=== PATIENT | male | born 2000 | race Two or more races ===

== ENCOUNTER 2025-03-03 18:15 | Emergency (ER) | payer BC, SELFPAY ==
[2025-03-03] VITALS (8 sets, daily range): BP systolic 158–229; BP diastolic 99–158; PULSE 70–103; RESP 16–20; TEMP 36.8–37.6; O2SAT 95–97; BMI 35.2
--- NOTE | 2025-03-03 18:35 | EKG_ITS ---
[facility] Test Date: 2025-03-03 Pat Name: YOGESH ALCANTARA Department: Room: - Gender: Male Chauffeur: : 2000 Requested By: Jada Parnell Order Number: [id number] Reading MD: Jada Parnell Measurements Intervals [place] Rate: 104 P: 26 FL: 182 QRS: 64 QRSD: 105 T: -25 QT: 305 QTc: 403 Interpretive Statements SINUS TACHYCARDIA ST DEVIATION AND MODERATE T-WAVE ABNORMALITY, CONSIDER LATERAL ISCHEMIA [-0.1+ mV T-WAVE IN I/aVL/V5/V6] ST DEVIATION AND MODERATE T-WAVE ABNORMALITY, CONSIDER INFERIOR ISCHEMIA [-0.1+ mV T-WAVE IN II/aVF] No previous ECG available for comparison /store/S0/[id number]
--- NOTE | 2025-03-03 18:35 | XR_ITS ---
Examination: CT lumbar spine, without contrast. 2-D sagittal reconstructions. 2-D coronal reconstructions. 3-D reconstructions. Date and time of exam: March 03, 2025, 1937 hours INDICATIONS: Onset right lower back pain beginning 3 days ago CTDI: vol (mGy): 41.3 DLP: (mGycm): 1573 Technique: Multiple 1.25 mm axial sections of the lumbar spine without intravenous contrast have been obtained. 2-D sagittal and coronal reconstructions have been obtained. 3-D reconstructions have been obtained. Low dose protocols were performed. One or more of the following dose reduction techniques were used; automated exposure control, adjustment of the mA and/or KV according to patient size, use of iterative reconstruction technique. Findings: Satisfactory line and lumbar vertebral bodies No lumbar fracture No spondylolisthesis No significant lumbar disc narrowing L5-S1 4 mm central 6 mm right paracentral subarticular disc bulge displacing the right S1 nerve root and producing mild right L5 ganglionic compression L4-L5 3 mm central lumbar disc bulge IMPRESSION: No lumbar fracture L5-S1 4 mm central 6 mm right paracentral subarticular disc bulge displacing the right S1 nerve root and producing mild right L5 ganglionic compression L4-L5 3 mm central lumbar disc bulge MRI lumbar spine without contrast follow-up would best assess full extent of acquired spinal stenosis
[2025-03-03] MEDS: HYDROcodone/APAP 5/325 TABLET 1 TAB PO (18:58)
[2025-03-03] MEDS: KETOROLAC INJ 60 MG/2 ML VIAL IM (18:59)
[2025-03-03 19:02] LABS: Basophils # (Auto) 0.1 Thou/mm3 (0.0-0.2); Basophils % (Auto) 1 % (0-2.5); Eosinophils # (Auto) 0.3 Thou/mm3 (0.0-0.5); Eosinophils % (Auto) 3 % (0-10); Hematocrit 44.6 % (41.0-53.0); Hemoglobin 15.4 g/dL (13.5-16.0); Immature Granulocytes Auto 0.01 Thou/mm3 (0.00-0.00); Lymphocytes # (Auto) 2.9 Thou/mm3 (1.0-4.8); Lymphocytes % (Auto) 32 % (10-50); Mean Corpuscular HGB Conc 34.5 g/dl (31.0-37.0); Mean Corpuscular Hemoglobin 30.3 pg (25.0-35.0); Mean Corpuscular Volume 88 fL (80-100); Monocytes # (Auto) 0.6 Thou/mm3 (0.0-0.8); Monocytes % (Auto) 6 % (0-12); Neutrophils # (Auto) 5.2 Thou/mm3 (1.8-7.7); Neutrophils % (Auto) 58 % (37-80); Nucleated Red Blood Cell # 0.00 Thou/mm3 (0.00-0.00); Nucleated Red Blood Cell % 0 /100 WBC (0); Platelet Count 319 Thou/mm3 (140-440); RDW Standard Deviation 38.9 fL (35.1-43.9); Red Blood Count 5.08 Miln/mm3 (4.50-5.90); White Blood Count 9.0 Thou/mm3 (3.8-10.6)
[2025-03-03 19:19] LABS: Alanine Aminotransferase 105 U/L (10-49); Albumin, Serum 5.4 gm/dL (3.5-5.0); Albumin/Globulin Ratio 2.0 (1.2-2.2); Alkaline Phosphatase 73 U/L (46-116); Anion Gap 10 (7-16); Aspartate Amino Transferase 32 U/L (0-34); BUN/Creatinine Ratio 11 Ratio (12-20); Bilirubin,Total 0.6 mg/dL (0.3-1.2); Blood Urea Nitrogen 9 mg/dL (9-23); Calcium 10.0 mg/dL (8.3-10.6); Calcium (Corrected) 10.0 mg/dL (8.5-10.1); Carbon Dioxide 27.8 mMol/L (20.0-31.0); Chloride 104 mMol/L (98-107); Creatinine (Component) 0.8 mg/dL (0.6-1.3); Estimated Creatinine Clearance 185.5 mL/min (>60); Globulin 2.7 gm/dL (2.3-3.5); Glucose 104 mg/dL (74-106); Osmolality,Calculated 281 (275-295); Potassium 3.8 mMol/L (3.4-5.1); Sodium 142 mMol/L (136-145); Total Protein 8.1 gm/dL (5.7-8.2); Troponin I < 0.020 ng/mL (0.0-0.045); eGFR > 60 See Note
[2025-03-03 19:28] LABS: Collection Type, Urine Voided; Squamous Epithelial Cell,Urine 0 /hpf (0-5)
[2025-03-03 20:03] LABS: Amorphous Crystals,Urine Present (Absent); Bacteria,Urine Rare; Bilirubin,Urine Negative (Negative); Blood,Urine Negative (Negative); Clarity,Urine Turbid (Clear/Hazy); Color,Urine Yellow (Lt Yel-Yel); Glucose, Urine Negative (Negative); Ketones,Urine Negative (Negative); Leukocyte Esterase,Urine Negative (Negative); Nitrite,Urine Negative (Negative); PH,Urine 7.0 (5.0-7.0); Protein,Urine Negative (Neg - Trace); RBC,Urine 1 /hpf (0-3); Specific Gravity,Urine 1.024 (1.001-1.035); Urobilinogen,Urine Negative mg/dL (0.0-1.0); WBC,Urine < 1 /hpf (0-5)
[2025-03-03] MEDS: MORPHINE SULF INJ 4 MG/ML VIAL IM (21:19)
[2025-03-03] MEDS: hydrALAZINE INJ 20 MG/ML VIAL 10 MG IM (22:30)
--- NOTE | 2025-03-03 22:48 | EDNOTE_ITS ---
ED Back Injury Pain RME/HPI General Chief Complaint: Back Pain/Injury Stated Complaint: LOWER BACK PAIN 01/04 Time Seen by Provider: 03/03/25 18:30 Arrival date/time: 03/03/25 18:15 This is a case of 24-year-old male with no medical history came in in the emergency room due to lower back pain for 6 days aggravated by walking patient states that the pain radiates to both side of his left lower extremities with some tingling sensation but no numbness no weakness noted denies any incontinence to urine or stool denies any injury or trauma Limitations: no limitations Related Data Previous Rx's ?Medication ?Instructions ?Recorded Hydrocodone/Acetaminophen * (NORCO 1 tab PO Q4H PRN pa in #20 tabs 12/31/14 5/325 *) ibuprofen 600 mg tablet 600 mg PO Q6HR PRN PAIN #40 tabs 12/31/14 cyclobenzaprine 10 mg tablet 10 mg PO BID PRN muscle s pasm #10 03/04/25 tabs hydrocodone 5 mg-acetaminophen 325 1 tab PO Q6H PRN pa in #16 tabs 03/04/25 mg tablet lidocaine 5 % topical patch 1 patch topical QDAY #15 e a 03/04/25 (Lidoderm) Allergies Allergy/AdvReac Type Severity Reaction Status Date / Time No Known Allergies Allergy Verified 03/03/25 18:18 Review of Systems Review of Systems Systems Reviewed: All systems reviewed, normal except as documented Constitutional Constitutional: Reports system reviewed and no additional complaints, except as documented and Reports as per HPI Cardiovascular Cardiovascular: Reports system reviewed and no additional complaints, except as documented and Reports as per HPI Respiratory Respiratory: Reports system reviewed and no additional complaints, except as documented and Reports as per HPI Gastrointestinal Gastrointestinal: Reports system reviewed and no additional complaints, except as documented and Reports as per HPI Musculoskeletal Musculoskeletal: Reports system reviewed and no additional complaints, except as documented, Reports as per HPI and Reports back pain Neurologic Neurologic: Reports system reviewed and no additional complaints, except as documented and Reports as per HPI Past Medical History Social History SMOKING STATUS: Never smoker ED Exam General Limitations: Present no limitations General appearance: Present alert, in no apparent distress and other (Patient is awake alert oriented not in distress nontoxic looking well-hydrated well nourished) Head Head exam: Present atraumatic Eye Eye exam: Present normal appearance, PERRL and EOMI ENT ENT exam: Present normal exam, normal oropharynx and mucous membranes moist Neck Neck exam: Present normal inspection, full ROM and trachea midline; Absent tenderness, meningismus, lymphadenopathy or thyromegaly Chest Chest inspection: Present normal inspection and symmetric chest wall rise; Absent tenderness Respiratory Respiratory exam: Present normal lung sounds bilaterally; Absent respiratory distress, wheezes, stridor, accessory muscle use or prolonged expiratory phase Cardiovascular Cardiovascular exam: Present regular rate, normal rhythm and normal heart sounds; Absent bradycardia, tachycardia, irregular rhythm, systolic murmur or diastolic murmur Abdominal Exam Abdominal exam: Present soft and normal bowel sounds; Absent distention, tenderness, guarding, rebound, rigidity, diminished bowel sounds, hyperactive bowel sounds or hypoactive bowel sounds Extremities Exam Extremities exam: Present normal inspection and full ROM Back Exam Back exam: Present normal inspection, full ROM, tenderness (Moderate tenderness on L1-L5 no crepitation no deformity no paraspinal no paravertebral tenderness ROM is limited due to pain pulses were full and equal capillary refill less than 2 seconds sensory intact), muscle spasm, paraspinal tenderness and other (Steady gait); Absent CVA tenderness (R), CVA tenderness (L), vertebral tenderness, rashes, sciatic notch tenderness (R), sciatic notch tenderness (L), straight leg raise (R) or straight leg raise (L) Neurological Exam Neurological exam: Present alert, oriented X3, CN II-XII intact, normal gait and reflexes normal; Absent motor sensory deficit Psychiatric Psychiatric exam: Present normal affect and normal mood Skin Skin exam: Present warm, dry, intact and normal color Course Quality Measures none Orders Category Date Time Status EKG (ED ONLY) *Do not use* NOW Care 03/03/25 18:[address] lumbar spine wo con Stat Exams 03/03/25 18:35 Completed EKG (ED Only) Stat Exams 03/03/25 18:35 Draft CBC Stat Lab 03/03/25 18:54 Completed CMP [Comprehensive Metabolic Panel] Stat Lab 03/03/25 18:54 Completed Troponin I Stat Lab 03/03/25 18:54 Completed Urinalysis Stat Lab 03/03/25 19:14 Completed HYDROcodone*/APAP 5/325 [[place] 5/325] Med 03/03/25 18:35 Discontinued 1 tab PO X1 ONE Ketorolac Inj [Toradol Inj] Med 03/03/25 18:35 Discontinued 60 mg IM X1 ONE Morphine* Inj Med 03/03/25 20:08 Discontinued 4 mg IM X1 ONE Morphine* Inj Med 03/03/25 21:06 Discontinued 4 mg IM X1 ONE cloNIDine HCL [Catapres] Med 03/03/25 20:31 Discontinued 0.1 mg PO X1 ONE cloNIDine HCL [Catapres] Med 03/03/25 21:06 Discontinued 0.1 mg PO X1 ONE dexAMETHasone INJ [Decadron Inj] Med 03/03/25 18:54 Discontinued 10 mg PO X1 ONE dexAMETHasone TAB [Decadron Tab] Med 03/03/25 18:35 Discontinued 1 mg PO X1 ONE hydrALAZINE INJ [Apresoline Inj] Med 03/03/25 22:00 Discontinued 10 mg IM X1 ONE Vital Signs Vital signs: Vital Signs Temperature 99.7 F 03/03/25 18:26 Pulse Rate 103 H 03/03/25 18:26 Respiratory Rate 20 03/03/25 18:26 Blood Pressure 229/138 H 03/03/25 18:26 Pulse Oximetry (%) 97 03/03/25 18:26 Oxygen Delivery Method Room Air 03/03/25 18:26 Oxygen saturation is 97% in room air Back Pain / Injury MDM Narrative MDM Narrative:: This is a case of 24-year-old male with no medical history came in in the emergency room due to lower back pain for 6 days aggravated by walking patient states that the pain radiates to both side of his left lower extremities with some tingling sensation but no numbness no weakness noted denies any incontinence to urine or stool denies any injury or trauma physical examination patient is awake alert oriented not in distress nontoxic looking well-hydrated well-nourished abdominal exam benign nonsurgical no guarding no rebound no rigidity negative psoas negative obturator negative Rovsing's negative McBurney's negative Wright sign negative CVA tenderness bladder is not distended not tender cervical exam is normal thoracic exam is normal lumbar noted to be tenderness on L1 L5 with muscle spasm no paraspinal no paravertebral tenderness no crepitation no deformity no redness no swelling leg raise exam is normal no CVA tenderness steady gait patient ROM is limited due to pain neurovascular is intact patient BP noted to be 229/138 tests cardiac workup was performed patient EKG is sinus tach at 104 troponin is negative CBC CMP is also normal patient was given a 2 doses of clonidine 0.1 and hydralazine blood pressure brought back to 158/99 due to severe pain in the lower back patient was given a series of pain medication initially started on Toradol dexamethasone and [place] still with pain thus morphine was given which did give the patient pain from 10-4 due to the lumbar pain severity my physical examination and result of the CT scan cannot totally ruled out stenosis unable to perform MRI tonight 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 Hayes states that 2 transferred the patient more higher level of care I spoke to the [facility] he stated at this time patient is stable no cauda equina they suggest to perform first MRI in the morning patient can be discharged today and patient will return around 10:00 for MRI and call them again for the result of MRI patient pain improved thus patient will be discharged with stable condition he was advised for any worsening symptoms or any emergent concern return precaution here in the emergency room immediately or call [phone] he was also advised to see PCP to monitor his high blood pressure Patient was discharged with comfortable condition walking with stable gait. Patient verbalized no further complains explained diagnosis and answered patient question. Patient is comfortable with the proposed management plan including the need to follow up with his/her primary care physician and any specialist if applicable Discussed patient for any urgent condition or worsening sx, He/She needed to go to emergency room immediately or call 911. Patient acknowledge the responsibility to follow up as instructed and to monitor her/his symptoms. For any persistence of the symptoms for more than 3-5 days return precaution advised. Discussed the result of the test and was given printed discharge instruction Patient data External records reviewed:: [facility] previous records Clinical information provided by:: patient Social determinants that could affect healthcare access:: none Patient has the following chronic illnesses:: None How is presenting disease/condition affected by chronic disease/condition?: no chronic disease Evaluation data The following diagnostics were reviewed and interpreted by me:: lab results, radiology exam(s) and EKG tracing(s) Lab and/or radiology exams considered but not ordered:: Reviewed Interpretation Summary: Reviewed Medications / Prescriptions Medications or Prescriptions considered but not ordered:: Given Medication administrations:: Medication Administration History Discontinued Medications Hydrocodone Bitart/Acetaminophen (Hydrocodone/Apap 5/325 Tablet) 1 tab PO X1 ONE Stop: 03/03/25 18:36 Last Admin: 03/03/25 18:58 Dose: 1 tab Documented By: CURTIS Clonidine (Clonidine Hcl 0.1 Mg Tablet) 0.1 mg PO X1 ONE Stop: 03/03/25 20:32 Last Admin: 03/03/25 20:34 Dose: 0.1 mg Documented By: CURTIS Clonidine (Clonidine Hcl 0.1 Mg Tablet) 0.1 mg PO X1 ONE Stop: 03/03/25 21:07 Last Admin: 03/03/25 21:18 Dose: 0.1 mg Documented By: CURTIS Dexamethasone (Dexamethasone 1 Mg Tablet) 1 mg PO X1 ONE; Protocol Stop: 03/03/25 18:36 Last Admin: 03/03/25 19:00 Dose: Not Given Documented By: CURTIS Non-Admin Reason: Cancelled by Provider Dexamethasone Sodium Phosphate (Dexamethasone Sod Phos Inj 10 Mg/Ml Vial) 10 mg PO X1 ONE Stop: 03/03/25 18:55 Last Admin: 03/03/25 18:58 Dose: 10 mg Documented By: CURTIS Hydralazine HCl (Hydralazine Inj 20 Mg/Ml Vial) 10 mg IM X1 ONE Stop: 03/03/25 22:01 Last Admin: 03/03/25 22:30 Dose: 10 mg Documented By: ALEXANDRO Ketorolac Tromethamine (Ketorolac Inj 60 Mg/2 Ml Vial) 60 mg IM X1 ONE Stop: 03/03/25 18:36 Last Admin: 03/03/25 18:59 Dose: 60 mg Documented By: CURTIS Morphine Sulfate (Morphine Sulf Inj 4 Mg/Ml Vial) 4 mg IM X1 ONE Stop: 03/03/25 20:09 Last Admin: 03/03/25 20:30 Dose: Not Given Documented By: CURTIS Non-Admin Reason: Cancelled by Provider Morphine Sulfate (Morphine Sulf Inj 4 Mg/Ml Vial) 4 mg IM X1 ONE Stop: 03/03/25 21:07 Last Admin: 03/03/25 21:19 Dose: 4 mg Documented By: CURTIS Given Consultations Consultation(s) initiated? (list below): Yes Consultation #1 (Physician, Specialty, Details): Please see my MDM notes Diagnosis Differential diagnosis back pain/injury: lumbar radiculopathy, sciatica and other (Spinal stenosis) Most likely diagnosis given after review of the tests above:: Lumbar bulging disc ruled out spinal stenosis Admission Indicated Admission indicated?: not indicated Explain why admission is indicated or not indicated:: Not indicated Admission Request Was there a request for admission?: No Admission Attestation Admission request attestation: Not indicated Disposition Plan Disposition Plan: Discharge Discharge Attestation Discharge Attestation: The patient and all family members were given an opportunity to ask questions and understood the discharge instructions. Discharge instructions specifically effects, indications for sooner follow up or return to the emergency department, and the expected course of current diagnosis. Patient condition: Stable Discharge Plan Plan Patient Disposition: HOME (Self Care) Patient condition on transfer: Stable Prescriptions/Referrals Prescriptions/Med Rec: New hydrocodone-acetaminophen 5-325 mg tablet 1 tab PO Q6H MDD max 4 tabs per day PRN (Reason: pain) Qty: 16 0RF cyclobenzaprine 10 mg tablet 10 mg PO BID PRN (Reason: muscle spasm) Qty: 10 0RF lidocaine [Lidoderm] 5 % adhesive patch,medicated 1 patch topical QDAY Qty: 15 0RF Rx Instructions: leave on most painful area for up to 12 hrs No Action ibuprofen 600 MG tablet 600 mg PO Q6HR PRN (Reason: PAIN) Qty: 40 0RF Hydrocodone/Acetaminophen * (NORCO 5/325 *) 1 TAB tablet 1 tab PO Q4H PRN (Reason: pain) Qty: 20 0RF Referrals: No Primary/Family,Physician [Primary Care Provider] - In 1 week Problem List Clinical Impression: Lower back pain, Bulging lumbar disc, Spinal stenosis, Elevated blood-pressure reading without diagnosis of hypertension Patient/Caregiver Discharge Instructions Education Materials: Anatomy of a Normal Spine, Common Spine and Disk Problems, ED Degenerative Disk Disease, ED High Blood Pressure ... Additional Instructions: It is very important to return this morning around 10 AM onwards for MRI of your lower back for ruling out spinal stenosis and to coordinate [facility] for the result of the MRI for any worsening symptoms or any emergent concerns such as numbness weakness tingling sensation incontinence to urine or stool call 911 or go to the nearest emergency room it is also important to follow-up with PCP to be referred to neurosurgeon for lumbar bulging disc and pain management for pain control it is also important to follow-up with your primary care physician to monitor your blood pressure and to start on blood pressure medication continue to monitor blood pressure twice a day and if your blood pressure greater than 160/100 or become symptomatic return to the emergency room immediately or call 911 ice pack and warm compress as needed for pain take your medication as directed ice pack and warm compress as needed for pain apply the back brace as directed no lifting no pushing no pulling more than 5 pounds is advised low-fat low-salt low-cholesterol diet advised Print Language: Ukrainian Stand Alone Forms: Lisa Award Info., Patient Portal Info Letter PA/DOCTOR PODIATRIC MEDICINE Supervising Physician PA/DOCTOR PODIATRIC MEDICINE Supervising Physician: Dr. Hanh Langley
== END 2025-03-04 00:42 | disposition home or self-care (01) ==
PROVIDERS: Nurse Practitioner Family; Emergency Provider Emergency Medicine
DX: M51.360 Other intervertebral disc degeneration, lumbar region with discogenic back pain only (principal); M48.061 Spinal stenosis, lumbar region without neurogenic claudication; R03.0 Elevated blood-pressure reading, without diagnosis of hypertension; R00.0 Tachycardia, unspecified
CPT/HCPCS: 36415; 72131; 80053; 81001; 84484; 85025; 93005; 96372; 99284; J0360; J1100; J1885; J2270; A9270

== ENCOUNTER 2025-03-04 14:41 | Emergency (ER) | payer BC, SELFPAY ==
--- NOTE | 2025-03-04 | XR_ITS ---
Examination: MRI lumbar spine without contrast Date and time of exam: February,, 1834 hours INDICATIONS: Weight lifting episode 1 week ago with low back pain radiating down the right leg, CT examination yesterday, disc bulges L5-S1 L4-L5 Technique: Multiple MRI axial and sagittal sections lumbar spine. Sagittal T2-weighted images, TR 3500, TE 118 T1 weighted transverse sections, TR 688 T8.5, T2-weighted sagittal sections T1 weighted sagittal sections TR 621, TE 30 T2 axial sections, TR 4, 190, TE 84. Findings: Minimal anterolisthesis L5 on S1 Disc desiccation lower 2 lumbar levels No lumbar fracture Adequate marrow signal lumbar vertebral bodies Moderate disc narrowing posteriorly L5-S1 L5-S1 4 mm central lumbar disc bulge extending to the foraminal regions with mild bilateral L5 ganglionic compression L4-L5 8 mm right foraminal disc bulge although no ganglionic compression L3-L4 no disc protrusion L2-L3 no disc protrusion L1-L2 no disc protrusion IMPRESSION: L5-S1 4 mm central lumbar disc bulge extending to the foraminal regions with mild bilateral L5 ganglionic compression L4-L5 8 mm right foraminal disc bulge although no ganglionic compression
[2025-03-04 14:53] VITALS: BP 189/135; PULSE 106; RESP 20; TEMP 36.9; O2SAT 98
--- NOTE | 2025-03-04 15:21 | PD.EDRME ---
Rapid Medical Screening Exam [facility] Arrival date/time: 03/04/25 14:41 24-year-old male with no known medical history presents to the emergency room with a chief complaint of lumbar back pain x 1 week after weightlifting. Patient was seen here yesterday and told to return to have an MRI of the lumbar spine. Chief Complaint: General Adult/Misc Complain Time Seen by Provider: 03/04/25 14:42 Vital signs: Vital Signs Temperature 98.5 F 03/04/25 14:53 Pulse Rate 106 H 03/04/25 14:53 Respiratory Rate 20 03/04/25 14:53 Blood Pressure 189/135 H 03/04/25 14:53 Pulse Oximetry (%) 98 03/04/25 14:53 Oxygen Delivery Method Room Air 03/04/25 14:53 Vital signs reviewed by provider: Yes Exam: Lumbar back pain with palpation Clear bilateral lung sounds Clinical Impression: Spinal stenosis/cauda equina/strain the lumbar region
[2025-03-04 15:43] LABS: Basophils # (Auto) 0.0 Thou/mm3 (0.0-0.2); Basophils % (Auto) 0 % (0-2.5); Eosinophils # (Auto) 0.0 Thou/mm3 (0.0-0.5); Eosinophils % (Auto) 0 % (0-10); Hematocrit 43.5 % (41.0-53.0); Hemoglobin 15.6 g/dL (13.5-16.0); Immature Granulocytes Auto 0.05 Thou/mm3 (0.00-0.00); Lymphocytes # (Auto) 2.4 Thou/mm3 (1.0-4.8); Lymphocytes % (Auto) 15 % (10-50); Mean Corpuscular HGB Conc 35.9 g/dl (31.0-37.0); Mean Corpuscular Hemoglobin 31.3 pg (25.0-35.0); Mean Corpuscular Volume 87 fL (80-100); Monocytes # (Auto) 1.2 Thou/mm3 (0.0-0.8); Monocytes % (Auto) 7 % (0-12); Neutrophils # (Auto) 12.0 Thou/mm3 (1.8-7.7); Neutrophils % (Auto) 77 % (37-80); Nucleated Red Blood Cell # 0.00 Thou/mm3 (0.00-0.00); Nucleated Red Blood Cell % 0 /100 WBC (0); Platelet Count 369 Thou/mm3 (140-440); RDW Standard Deviation 38.7 fL (35.1-43.9); Red Blood Count 4.98 Miln/mm3 (4.50-5.90); White Blood Count 15.6 Thou/mm3 (3.8-10.6)
[2025-03-04 15:44] LABS: Collection Type, Urine Clean Catch; Squamous Epithelial Cell,Urine 0 /hpf (0-5)
[2025-03-04 15:49] LABS: Bilirubin,Urine Negative (Negative); Blood,Urine Negative (Negative); Clarity,Urine Clear (Clear/Hazy); Color,Urine Yellow (Lt Yel-Yel); Culture Indicated,Urine Not Indicated; Glucose, Urine Negative (Negative); Hyaline Casts,Urine < 1 /hpf (0-1); Ketones,Urine Negative (Negative); Leukocyte Esterase,Urine Negative (Negative); Nitrite,Urine Negative (Negative); PH,Urine 6.0 (5.0-7.0); Protein,Urine Trace (Neg - Trace); RBC,Urine 2 /hpf (0-3); Specific Gravity,Urine 1.038 (1.001-1.035); Urobilinogen,Urine Negative mg/dL (0.0-1.0); WBC,Urine 1 /hpf (0-5)
[2025-03-04 15:53] LABS: INR 1.1 (0.9-1.3); Partial Thromboplastin Time 26.8 Seconds (22.0-36.0); Prothrombin Time 11.4 Seconds (9.0-12.2)
[2025-03-04 15:55] LABS: Alanine Aminotransferase 85 U/L (10-49); Albumin, Serum 5.5 gm/dL (3.5-5.0); Albumin/Globulin Ratio 2.1 (1.2-2.2); Alkaline Phosphatase 70 U/L (46-116); Anion Gap 13 (7-16); Aspartate Amino Transferase 22 U/L (0-34); BUN/Creatinine Ratio 16 Ratio (12-20); Bilirubin,Total 0.7 mg/dL (0.3-1.2); Blood Urea Nitrogen 16 mg/dL (9-23); Calcium 10.0 mg/dL (8.3-10.6); Calcium (Corrected) 10.0 mg/dL (8.5-10.1); Carbon Dioxide 25.4 mMol/L (20.0-31.0); Chloride 104 mMol/L (98-107); Creatinine (Component) 1.0 mg/dL (0.6-1.3); Globulin 2.6 gm/dL (2.3-3.5); Glucose 105 mg/dL (74-106); Osmolality,Calculated 284 (275-295); Potassium 3.6 mMol/L (3.4-5.1); Sodium 142 mMol/L (136-145); Total Protein 8.1 gm/dL (5.7-8.2); eGFR > 60 See Note
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
[2025-03-04] MEDS: KETOROLAC INJ 60 MG/2 ML VIAL IM (21:23)
[2025-03-04 21:24] VITALS: BP 189/135; PULSE 106
--- NOTE | 2025-03-04 22:03 | EDNOTE_ITS ---
ED Back Injury Pain RME/HPI General Chief Complaint: General Adult/Misc Complain Stated Complaint: RETURN FOR MRI TO LOWER BACK Time Seen by Provider: 03/04/25 14:42 Arrival date/time: 03/04/25 14:41 This is a case of 24-year-old male with history of chronic low back pain came in in the emergency room due to low back pain on and off for few days patient was seen here yesterday and was treated for bulging lumbar disc with possible spinal stenosis [facility] called and advised to return the patient in the morning to perform MRI and we will call them for the result of the MRI patient still have lower back pain on and off radiating to the lateral side of the thigh with tingling sensation but no numbness no weakness no incontinence to urine or stool Limitations: no limitations RME / HPI RME / HPI Narrative: 03/04/25 14:41 24-year-old male with no known medical history presents to the emergency room with a chief complaint of lumbar back pain x 1 week after weightlifting. Patient was seen here yesterday and told to return to have an MRI of the lumbar spine. Exam: Lumbar back pain with palpation Clear bilateral lung sounds Impression: Spinal stenosis/cauda equina/strain the lumbar region Related Data Previous Rx's ?Medication ?Instructions ?Recorded Hydrocodone/Acetaminophen * (NORCO 1 tab PO Q4H PRN pa in #20 tabs 12/31/14 5/325 *) ibuprofen 600 mg tablet 600 mg PO Q6HR PRN PAIN #40 tabs 12/31/14 cyclobenzaprine 10 mg tablet 10 mg PO BID PRN muscle s pasm #10 03/04/25 tabs hydrocodone 5 mg-acetaminophen 325 1 tab PO Q6H PRN pa in #16 tabs 03/04/25 mg tablet lidocaine 5 % topical patch 1 patch topical QDAY #15 e a 03/04/25 (Lidoderm) lisinopril 5 mg tablet 5 mg PO QDAY 30 days #30 tab s 03/04/25 methylprednisolone 4 mg tablets in 4 mg PO QAM #21 tab s 03/04/25 a dose pack (Medrol (Tristin)) Allergies Allergy/AdvReac Type Severity Reaction Status Date / Time No Known Allergies Allergy Verified 03/04/25 14:43 Review of Systems Review of Systems Systems Reviewed: All systems reviewed, normal except as documented Constitutional Constitutional: Reports system reviewed and no additional complaints, except as documented and Reports as per HPI Cardiovascular Cardiovascular: Reports system reviewed and no additional complaints, except as documented and Reports as per HPI Respiratory Respiratory: Reports system reviewed and no additional complaints, except as documented and Reports as per HPI Gastrointestinal Gastrointestinal: Reports system reviewed and no additional complaints, except as documented and Reports as per HPI Genitourinary Genitourinary: Reports system reviewed and no additional complaints, except as documented and Reports as per HPI Musculoskeletal Musculoskeletal: Reports system reviewed and no additional complaints, except as documented, Reports as per HPI and Reports back pain Neurologic Neurologic: Reports system reviewed and no additional complaints, except as documented and Reports as per HPI Past Medical History Past Medical History CARDIAC: Negative Congestive Heart Failure RESPIRATORY: Negative Respiratory Disorders or Chronic Obstructive Pulmonary Disease (COPD) GENITOURINARY: Negative Renal Disease ENDOCRINE: Negative Diabetes Mellitus Type 1 or Diabetes Mellitus Type 2 Social History SMOKING STATUS: Never smoker ED Exam General Limitations: Present no limitations General appearance: Present alert, in no apparent distress and other (Patient is awake alert oriented not in distress nontoxic looking well-hydrated well nourished) Head Head exam: Present atraumatic, normocephalic and normal inspection Eye Eye exam: Present normal appearance, PERRL and EOMI ENT ENT exam: Present normal exam, normal oropharynx and mucous membranes moist Neck Neck exam: Present normal inspection, full ROM, trachea midline and other; Absent tenderness, meningismus, lymphadenopathy or thyromegaly Chest Chest inspection: Present normal inspection and symmetric chest wall rise; Absent tenderness Respiratory Respiratory exam: Present normal lung sounds bilaterally; Absent respiratory distress, wheezes, stridor, accessory muscle use or prolonged expiratory phase Cardiovascular Cardiovascular exam: Present regular rate, normal rhythm and normal heart sounds; Absent bradycardia, tachycardia, irregular rhythm or systolic murmur Abdominal Exam Abdominal exam: Present soft and normal bowel sounds; Absent distention, tenderness, guarding, rebound, rigidity, diminished bowel sounds, hyperactive bowel sounds, hypoactive bowel sounds or organomegaly Extremities Exam Extremities exam: Present normal inspection and full ROM Back Exam Back exam: Present normal inspection, full ROM, tenderness (Tenderness on L1 L5 with muscle spasm no paraspinal no paravertebral tenderness leg raise exam is normal ROM is limited due to pain pulses were full and equal capillary refill less than 2 seconds sensory intact), muscle spasm and other (No crepitation no deformity no redness no); Absent CVA tenderness (R), CVA tenderness (L), paraspinal tenderness, vertebral tenderness, rashes, sciatic notch tenderness (R), sciatic notch tenderness (L), straight leg raise (R) or straight leg raise (L) Neurological Exam Neurological exam: Present alert, oriented X3, CN II-XII intact, normal gait and reflexes normal; Absent motor sensory deficit Psychiatric Psychiatric exam: Present normal affect and normal mood Skin Skin exam: Present warm, dry, intact and normal color Course Quality Measures none Orders Category Date Time Status MRI Screening NOW Care 03/04/25 14:58 Active MR lumbar spine wo con Stat Exams 03/04/25 Completed CBC Stat Lab 03/04/25 15:15 Completed CMP [Comprehensive Metabolic Panel] Stat Lab 03/04/25 15:15 Completed PT [Prothrombin Time with INR] Stat Lab 03/04/25 15:15 Completed PTT [Partial Thromboplastin Time] Stat Lab 03/04/25 15:15 Completed UA, C/S IF [Urinalysis, C/S if Indicated] Stat Lab 03/04/25 15:28 Completed HYDROcodone*/APAP 5/325 [[place] 5/325] Med 03/04/25 21:09 Discontinued 1 tab PO X1 ONE Ketorolac Inj [Toradol Inj] Med 03/04/25 21:09 Discontinued 60 mg IM X1 ONE cloNIDine HCL [Catapres] Med 03/04/25 21:09 Discontinued 0.2 mg PO X1 ONE Vital Signs Vital signs: Vital Signs Temperature 98.5 F 03/04/25 14:53 Pulse Rate 106 H 03/04/25 14:53 Respiratory Rate 20 03/04/25 14:53 Blood Pressure 189/135 H 03/04/25 14:53 Pulse Oximetry (%) 98 03/04/25 14:53 Oxygen Delivery Method Room Air 03/04/25 14:53 Oxygen saturation is 98% in room air normal Back Pain / Injury MDM Narrative MDM Narrative:: This is a case of 24-year-old male with history of chronic low back pain came in in the emergency room due to low back pain on and off for few days patient was seen here yesterday and was treated for bulging lumbar disc with possible spinal stenosis [facility] called and advised to return the patient in the morning to perform MRI and we will call them for the result of the MRI patient still have lower back pain on and off radiating to the lateral side of the thigh with tingling sensation but no numbness no weakness no incontinence to urine or stool physical examination patient is awake alert oriented not in distress nontoxic looking well-hydrated well-nourished patient noted to have moderate tenderness L1 L5 with limitation of movement on the lower back due to pain muscle spasm is also noted but no paraspinal no paravertebral tenderness leg raise exam is normal steady gait the rest of the physical examination neurological exam is normal and unremarkable MRI result L5-S1 4 mm central lumbar disc bulge extending to the foraminal regions with mild bilateral L5 ganglionic compression L4-L5 8 mm right foraminal disc bulge although no ganglionic compression I discussed result of MRI with the resident of [facility] at this point there is no indication to admit or transfer the patient no signs and symptoms of a cauda equina patient will be following up with PCP to be referred to neurosurgeon and pain management doctor and for any worsening symptoms or any emergent concern return precaution in the ER is advised patient blood pressure was also monitored and was given clonidine which blood pressure went down to 161/101 lisinopril was prescribed 5 mg low-dose and he was advised to follow-up with PCP to continue to monitor blood pressure return precaution in the ER is advised Patient was discharged with comfortable condition walking with stable gait. Patient verbalized no further complains explained diagnosis and answered patient question. Patient is comfortable with the proposed management plan including the need to follow up with his/her primary care physician and any specialist if applicable Discussed patient for any urgent condition or worsening sx, He/She needed to go to emergency room immediately or call 911. Patient acknowledge the responsibility to follow up as instructed and to monitor her/his symptoms. For any persistence of the symptoms for more than 3-5 days return precaution adv ised. Discussed the result of the test and was given printed discharge instruction Patient data External records reviewed:: [facility] previous records Clinical information provided by:: patient Social determinants that could affect healthcare access:: none Patient has the following chronic illnesses:: None How is presenting disease/condition affected by chronic disease/condition?: no chronic disease Evaluation data The following diagnostics were reviewed and interpreted by me:: lab results and radiology exam(s) Lab and/or radiology exams considered but not ordered:: Reviewed Interpretation Summary: Reviewed Medications / Prescriptions Medications or Prescriptions considered but not ordered:: Given Medication administrations:: Medication Administration History Discontinued Medications Hydrocodone Bitart/Acetaminophen (Hydrocodone/Apap 5/325 Tablet) 1 tab PO X1 ONE Stop: 03/04/25 21:10 Last Admin: 03/04/25 21:24 Dose: Not Given Documented By: OA Non-Admin Reason: Discontinued Clonidine (Clonidine Hcl 0.1 Mg Tablet) 0.2 mg PO X1 ONE Stop: 03/04/25 21:10 Last Admin: 03/04/25 21:24 Dose: 0.2 mg Documented By: OA Ketorolac Tromethamine (Ketorolac Inj 60 Mg/2 Ml Vial) 60 mg IM X1 ONE Stop: 03/04/25 21:10 Last Admin: 03/04/25 21:23 Dose: 60 mg Documented By: OA Given Consultations Consultation(s) initiated? (list below): No Diagnosis Differential diagnosis back pain/injury: lumbar radiculopathy and sciatica Most likely diagnosis given after review of the tests above:: Lumbar bulging disc spinal stenosis Admission Indicated Admission indicated?: not indicated Explain why admission is indicated or not indicated:: Not indicated Admission Request Was there a request for admission?: No Admission Attestation Admission request attestation: Not indicated Disposition Plan Disposition Plan: Discharge Discharge Attestation Discharge Attestation: The patient and all family members were given an opportunity to ask questions and understood the discharge instructions. Discharge instructions specifically effects, indications for sooner follow up or return to the emergency department, and the expected course of current diagnosis. Patient condition: Stable Discharge Plan Plan Patient Disposition: HOME (Self Care) Patient condition on transfer: Stable Prescriptions/Referrals Prescriptions/Med Rec: New methylprednisolone [Medrol (Tristin)] 4 mg tablets,dose pack 4 mg PO QAM Qty: 21 0RF lisinopril 5 mg tablet 5 mg PO QDAY 30 Days Qty: 30 0RF No Action ibuprofen 600 MG tablet 600 mg PO Q6HR PRN (Reason: PAIN) Qty: 40 0RF Hydrocodone/Acetaminophen * (NORCO 5/325 *) 1 TAB tablet 1 tab PO Q4H PRN (Reason: pain) Qty: 20 0RF hydrocodone-acetaminophen 5-325 mg tablet 1 tab PO Q6H MDD max 4 tabs per day PRN (Reason: pain) Qty: 16 0RF cyclobenzaprine 10 mg tablet 10 mg PO BID PRN (Reason: muscle spasm) Qty: 10 0RF lidocaine [Lidoderm] 5 % adhesive patch,medicated 1 patch topical QDAY Qty: 15 0RF Rx Instructions: leave on most painful area for up to 12 hrs Referrals: No Primary/Family,Physician [Primary Care Provider] - In 1 week Problem List Clinical Impression: Bulging lumbar disc, Spinal stenosis, Hypertension Patient/Caregiver Discharge Instructions Education Materials: Anatomy of a Normal Spine, ED Degenerative Disk Disease, ED Hypertension, Established Additional Instructions: Follow-up with your primary care physician in 2 days for reevaluation and to be referred to neurosurgeon for further evaluation and treatment of lumbar bulging disc and spinal stenosis and pain management doctor for pain control recurrence persistent worsening symptoms or any emergent concerns such as numbness weakness tingling sensation incontinence to urine or stool call 911 or go to the nearest emergency room take your medication as directed ice pack and warm compress as needed for pain it is also very important to follow-up with your primary care physician to monitor your blood pressure and to check your blood pressure check your blood pressure every twice a day and return to the emergency room if the blood pressure greater than 160/100 or become symptomatic Print Language: Bulgarian Stand Alone Forms: Lisa Award Info., Patient Portal Info Letter KAPIL/OFELIA Supervising Physician KAPIL/OFELIA Supervising Physician: Dr. Hanh Langley
[2025-03-04 23:03] VITALS: BP 161/104; PULSE 84; RESP 18; TEMP 36.8; O2SAT 98
== END 2025-03-04 23:48 | disposition home or self-care (01) ==
PROVIDERS: Nurse Practitioner Family; Emergency Provider Emergency Medicine
DX: M51.360 Other intervertebral disc degeneration, lumbar region with discogenic back pain only (principal); M48.061 Spinal stenosis, lumbar region without neurogenic claudication; G95.29 Other cord compression; I10 Essential (primary) hypertension
CPT/HCPCS: 36415; 72148; 80053; 81001; 85025; 85610; 85730; 96372; 99283; J1885; A9270